=== PATIENT | male | born 1990 | race Two or more races ===

== ENCOUNTER 2018-10-01 22:13 | Emergency (ER) | payer OTHER ==
--- NOTE | 2018-10-01 23:07 | ED ---
Lower Extremity - HPI Summary HPI Summary: 28-year-old male presents with left patella dislocation today. He was getting on the bus when it popped out of place. He states the EMS reduced his patella back in place. He denies any numbness or tingling. No pain at the moment. This has never happened before. He has no medical conditions. - History of Current Complaint Chief Complaint: EDExtremityLower Stated Complaint: LEG INJURY Time Seen by Provider: 10/01/18 22:14 Pain Intensity: 3 - Allergies/Home Medications Allergies/Adverse Reactions: Allergies Allergy/AdvReac Type Severity Reaction Status Date / Time No Known Allergies Allergy Verified 10/01/18 22:21 Home Medications: Home Medications NK [No Home Medications Reported] 10/01/18 [History Confirmed 10/01/18] PMH/Surg Hx/FS Hx/Imm Hx Endocrine/Hematology History: Denies: Hx Anticoagulant Therapy Respiratory History: Denies: Hx Asthma Infectious Disease History: No Infectious Disease History: Denies: Traveled Outside the [place] in Last 30 Days - Family History Known Family History: Positive: Non-Contributory - Social History Alcohol Use: None Substance Use Type: Reports: None Smoking Status (MU): Never Smoked Tobacco Review of Systems Negative: Fever Negative: Chest Pain Negative: Shortness Of Breath Positive: Myalgia - knee pain All Other Systems Reviewed And Are Negative: Yes Physical Exam Triage Information Reviewed: Yes Vital Signs On Initial Exam: Initial Vitals Temp Pulse Resp BP Pulse Ox 97.7 F 100 16 146/92 99 10/01/18 22:15 10/01/18 22:15 10/01/18 22:15 10/01/18 22:15 10/01/18 22:15 Vital Signs Reviewed: Yes Appearance: Positive: Well-Appearing Skin: Positive: Warm, Dry Head/Face: Positive: Normal Head/Face Inspection Eyes: Positive: Normal, Conjunctiva Clear ENT: Positive: Pharynx normal Respiratory/Lung Sounds: Positive: Clear to Auscultation, Breath Sounds Present Cardiovascular: Positive: Normal, RRR Musculoskeletal: Positive: Strength/ROM Intact - left knee, Other - nontender left knee, good pulses Neurological: Positive: Normal Psychiatric: Positive: Normal Diagnostics - Vital Signs Vital Signs Temp Pulse Resp BP Pulse Ox 10/01/18 22:15 97.7 F 100 16 146/92 99 - Laboratory Lab Statement: Any lab studies that have been ordered have been reviewed, and results considered in the medical decision making process. - Radiology knee Radiology Interpretation Completed By: ED Physician Summary of Radiographic Findings: no fracture Lower Extremity Course/Dx - Course Course Of Treatment: 28-year-old male presents with left patella dislocation today. He was getting on the bus when it popped out of place. He states the EMS reduced his patella back in place. He denies any numbness or tingling. No pain at the moment. This has never happened before. He has no medical conditions. On exam nontender left knee. neurovascular intact. X-rays normal. gave knee immobilizer and follow-up with orthopedic. Patient understands agrees plan. - Diagnoses Differential Diagnosis/HQI/PQRI: Positive: Dislocation, Fracture (Closed), Sprain Provider Diagnoses: Patellar dislocation Discharge - Sign-Out/Discharge Documenting (check all that apply): Patient Departure Patient Received Moderate/Deep Sedation with Procedure: No - Discharge Plan Condition: Good Disposition: HOME Patient Education Materials: Patellar Dislocation (ED) Referrals: Michael Gipson MD [Medical Doctor] - Additional Instructions: Use immobilizer Ice, elevate, Ibuprofen or Tylenol every 6 hours for pain Follow up with ortho Return to ED if develop or any new or worsening symptoms - Billing Disposition and Condition Condition: GOOD Disposition: Home
[2018-10-01 23:26] VITALS: BP 137/88
== END 2018-10-01 23:25 | disposition home or self-care (01) ==
LOC: ED 22:13
DX: S83.005A Unspecified dislocation of left patella, initial encounter (principal); X58.XXXA Exposure to other specified factors, initial encounter; Y92.9 Unspecified place or not applicable
CPT/HCPCS: 99282